=== PATIENT | female | born 1995 | race Caucasian/White ===

== ENCOUNTER → 2017-06-18 | Outpatient (REF) | payer OTHER ==
[2017-06-20 10:23] LABS: RETIC HEMOGLOBIN EQUIVALENT 33.7 pg (24-36); RETICULOCYTE % 5.2 % (0.5-1.5)
== END ==
LOC: M LAB REF 10:20
DX: D58.0 Hereditary spherocytosis (principal)
CPT/HCPCS: 85046

== ENCOUNTER 2018-02-26 00:41 | Emergency (ER) | payer OTHER ==
[2018-02-26] MEDS: traMADol 50 MG TAB PO (02:51)
== END 2018-02-26 02:57 | disposition home or self-care (01) ==
LOC: M ED 00:41
DX: S83.91XA Sprain of unspecified site of right knee, initial encounter (principal); W10.8XXA Fall (on) (from) other stairs and steps, initial encounter; Y92.018 Other place in single-family (private) house as the place of occurrence of the external cause; M32.9 Systemic lupus erythematosus, unspecified; Z88.1 Allergy status to other antibiotic agents; Z88.2 Allergy status to sulfonamides; Z88.8 Allergy status to other drugs, medicaments and biological substances
CPT/HCPCS: 73560